=== PATIENT | female | born 1950 | race Caucasian/White ===

== ENCOUNTER 2016-04-29 18:44 | Inpatient (IN) | payer OTHER ==
[~2016-04-29] VITALS: Ht 149.9 cm; Wt 65.1 kg
[~2016-04-29 18:44] MED LIST: Aspirin PO; CLOP75TA14 PO; GLU500 PO; LISI1TAB PO; METO25T PO; SMV40T PO; nitroglycerin SL
[2016-04-29 19:01] VITALS: BP 164/101; PULSE 78; RESP 19; O2SAT 97
[2016-04-29] MEDS ORDERED: 0.9% Sodium Chloride 1,000 ML IV ONE (19:09)
--- NOTE | 2016-04-29 19:09 | ED.REPORT ---
HPI-Chest Pain 40 and Over Date of Service Apr 29, 2016 ED Provider: Dr. Sharad Benavides 65-year-old female with known coronary artery disease status post tenting presents with burning chest pain. She states that she suffered with about 30- 35 minutes of a burning sensation in the upper sternum. She thought was heartburn however was not relieved with [id number] antacids. EMS was called. She was given a couple sprays of nitroglycerin which reduced the pain significantly. On my evaluation she was nearly pain-free. Nursing Notes Stated Complaint: CHEST PAIN Chief Complaint: Chest Pain Nursing Notes Reviewed: Yes Allergies: Coded Allergies: No Known Allergies (Unverified , 10/11/11) Scheduled Aspirin Chew (Aspirin Chew) 81 Mg Chew 81 MG PO DAILY Atorvastatin (Lipitor) 40 Mg Tablet 40 MG PO HS Cetirizine Chew (Cetirizine Chew) 10 Mg Tab.chew 10 MG PO HS Cyanocobalamin (Vitamin B12) 500 Mcg Tablet 1,000 MCG PO DAILY Hydrochlorothiazide (Hydrochlorothiazide) 25 Mg Tablet 25 MG PO DAILY Lisinopril (Lisinopril) 40 Mg Tablet 40 MG PO DAILY Metformin (Metformin) 500 Mg Tablet 500-1,000 MG PO BIDWM Metoprolol Tartrate (Metoprolol Tartrate) 25 Mg Tablet 25 MG PO BID Ranitidine (Zantac) 150 Mg Tablet 150 MG PO DAILY Scheduled PRN Nitroglycerin SL (Nitroglycerin SL) 0.4 Mg Tab.subl 0.4 MG SL Q5MIN PRN PRN For Chest Pain Zolpidem (Zolpidem) 10 Mg Tablet 10 MG PO HS PRN PRN For Insomnia General Time Seen by MD: 19:08 Chief Complaint Chest pain Hx Obtained From: Patient Arrived By: Walk-in Sudden in Onset?: Yes Onset Occurred: 16 - 30 minutes ago Context of Onset: Other (talking on the phone) Symptom Duration: Since onset Location: : Chest left Quality: Burning Radiation: : Does not radiate Severity: Current: Moderate Recent Healthcare: No recent doctor visit, No recent hospitalization Similar Sx Previous: No Past Medical History Past Medical History DM borderline II Reports: Hypertension Past Surgical History breast reduction Smoking History Former Smoker, Never Smoker Social History Alcohol Use: Denies alcohol use Drug Use: Denies drug use Ambulatory Status Independent Review of Systems Respiratory: Denies: Non-productive cough Cardiovascular: Reports: Chest pain GI: Denies: Abdominal pain Musculoskeletal: Denies: Back pain, Extremity pain Skin: Denies Diaphoresis Complete sys rev & neg: except as marked. Physical Exam Initial Vital Signs Vital Signs (First) Date Time Temp Pulse Resp B/P Pulse Ox O2 Delivery O2 Flow Rate FiO2 04/29/16 19:01 36.9 78 19 164/101 97 Room Air Initial VS: Reviewed Head / Eyes: Atraumatic, Normocephalic, PERRL ENT: Mucous membranes moist, Conjunctiva normal, No scleral icterus Neck: Supple, Non-tender, Full range of motion Back: No CVA tenderness Lymphatic: No lymphadenopathy Extremities: Vascular intact, Neuro intact, No swelling, No tenderness Skin: Warm, Dry, No cyanosis Neurologic: Alert, Oriented, Nonfocal Psychiatric: Mood/affect normal, Behavior normal, Normal thought content General/Constitutional: Awake, Alert, No acute distress, Well appearing, Well developed, Well hydrated, Cooperative, Not toxic appearing Respiratory / Chest: Atraumatic, Breath sounds NL, Breath sounds = bilat, No respiratory distress, No rales, No rhonchi, No wheezing, No retractions, No stridor Cardiovascular: Heart rate NL, Regular rhythm, Heart sounds NL, No gallop, No murmurs, No rubs, Peripheral circulation NL, Pulses = bilaterally Abdomen: Atraumatic, Soft, Non-tender, No guarding, No rebound, BS normoactive , No distention Interpretation & Diagnostics Lab Results Interpretation Result Diagram: 04/29/16191904/29/161919 Test 04/29/16 19:20 White Blood Count 10.3th/mm3 (3.8-10.1) Red Blood Count 4.62mil/mm3 (3.90-5.20) Hemoglobin 14.0g/dL (12.0-15.6) Hematocrit 38.6% (35.0-46.0) Mean Corpuscular Volume 83.5fL (81-100) Mean Corpuscular Hemoglobin 30.3pg (27.0-35.0) Mean Corpuscular Hemoglobin Concent 36.3% (32.0-37.0) Red Cell Distribution Width 12.3% (12.3-15.4) Platelet Count 262bil/L (150-400) Neutrophils (%) (Auto) 60.7% (40-74) Lymphocytes (%) (Auto) 29.2% (14-46) Monocytes (%) (Auto) 6.9% (4-12) Eosinophils (%) (Auto) 2.5% (0-5) Basophils (%) (Auto) 0.4% (0-3) Prothrombin Time 9.8sec (8.1-12.5) Prothromb Time International Ratio 0.92ratio Activated Partial Thromboplast Time 28.4sec (22.8-33.0) Sodium Level 136mEq/L (134-144) Potassium Level 2.9mEq/L (3.5-5.2) Chloride Level 95mEq/L (97-108) Carbon Dioxide Level 23mmol/L (18-29) Blood Urea Nitrogen 14mg/dL (8-27) Creatinine 0.58mg/dL (0.57-1.00) Estimat Glomerular Filtration Rate 150mL/min (>59) Glucose Level 167mg/dL (60-99) Calcium Level 9.0mg/dL (8.5-10.1) Magnesium Level 1.4mg/dL (1.6-2.6) Total Bilirubin 0.6mg/dL (0.0-1.2) Aspartate Amino Transf (AST/SGOT) 14U/L (0-50) Alanine Aminotransferase (ALT/SGPT) 13U/L (0-32) Alkaline Phosphatase 72U/L (25-165) Troponin T 0.044ug/L (0.0-0.011) Pro-B-Type Natriuretic Peptide 63.08pg/mL (0-287) Total Protein 6.8g/dL (6.4-8.4) Albumin 4.5g/dL (3.4-5.0) Hold Swain Top Tube Received (Received) ECG Interpretation ECG Interpretation: sinus arrhythmia (rate 72) isoelectric Q waves in V1, V2, V3 no significant ST elevation or depression Time: 19:38 Interpreted by: ED physician X-Ray Chest Interpretation Chest Xray Interpretation: IMPRESSION: No acute pulmonary process. Dictated by: Neelima Linares M.D. on 04/29/2016 at 19:41 Approved by: Neelima Linares M.D. on 04/29/2016 at 19:41 View: Portable Interpretation / Wet Read by: Interpret - Radiologist Re-Eval/Medical Decision Med Decision/Clinical Course Serial EKGs do not demonstrate dynamic ST changes. First troponin is elevated Second EKG is unchanged. Mild leukocytosis. Signs and symptoms consistent with an acute coronary syndrome first non-ST elevation UT. I consulted with Dr. Rashid from cardiology. Ms. Slade is essentially pain free now. She does suffer from reflux symptoms and she is having some burning pain in her lower abdomen that she thinks is more like her reflux. She has been medicated with heparin, Plavix, aspirin and nitrates. Morphine has been ordered for pain. Her blood pressure is currently 129. Her heart rate is 82. She will be admitted to the progressive care unit for further evaluation and treatment. Time of Eval: 20:38 Patient Status: Condition improved, Pain improved Re-Evaluation/Progress Note: Pt rechecked. Pain is almost completely gone. Informed pt of plan of treatment and need for admission. Pt understands and agrees with plan. All questions addressed. Consultation : Referral / Consult Name: SUSTAINABILITY PROJECT MANAGER FLOR NELSON Counseled Regarding: Diagnosis, Lab results, Need for admission Discharge & Departure Primary Impression: Non-ST elevation myocardial infarction (NSTEMI) Disposition: ADMITTED TO HOSPITAL Discharge Condition All VS Reviewed: Yes Condition: Stable Referrals: Darion Campos MD (PCP) [place] Attestation Portion of this note were transcribed by Tricia Dinh. I, Dr. Benavides, personally performed the history, physical exam, and medical decision-making: I reviewed and confirmed the accuracy for the information in the transcribed note. Signed by: hill Blackman, 04/29/16 2200 copies to: Darion Campos MD, Todd P DO Apr 29, 2016 19:09 Tricia Dinh Apr 29, 2016 19:14
[2016-04-29] MEDS ORDERED: Nitroglycerin 2% 1 Gm Ointment TOPICAL ONE (19:10)
[2016-04-29 19:33] LABS: BASOPHILS % (AUTO) 0.4 % (0-3); EOSINOPHILS % (AUTO) 2.5 % (0-5); MONOCYTES % (AUTO) 6.9 % (4-12); Mean Corpuscular Hemoglobin 30.3 pg (27.0-35.0); Mean Corpuscular Volume 83.5 fL (81-100); NEUTROPHILS % (AUTO) 60.7 % (40-74); Platelet Count 262 bil/L (150-400)
--- NOTE | 2016-04-29 19:43 | DRSVH ---
PROCEDURE: X-RAY CHEST ONE VIEW, PORTABLE ([id number]) INDICATIONS: chest pain TECHNIQUE: One view of the chest was acquired. COMPARISON: [facility], , CHEST 2VW, 10/08/2011, 16:40. FINDINGS: Surgical changes and devices: None. Lungs and pleura: No pleural effusions or pneumothorax. Lungs are clear. Mediastinum: Mediastinal contours appear normal. Heart size is normal. Bones and chest wall: No suspicious bony lesions. Overlying soft tissues appear unremarkable. IMPRESSION: No acute pulmonary process. Dictated by: Neelima Linares M.D. on 04/29/2016 at 19:41 Approved by: Neelima Linares M.D. on 04/29/2016 at 19:41
[2016-04-29 19:54] LABS: INR 0.92 ratio
[2016-04-29 20:12] LABS: Magnesium 1.4 mg/dL (1.6-2.6)
[2016-04-29 20:13] LABS: TROPONIN T 0.044 ug/L (0.0-0.011)
[2016-04-29] MEDS ORDERED: Heparin 25K Unit/500mL 0.45 NS 25,000 UNIT in IV Premix 1 EACH IV ONE (20:30)
[2016-04-29] MEDS ORDERED: Heparin 5,000 Unit/mL Inj IVPUSH ONE (20:30)
[2016-04-29] MEDS ORDERED: MeTOProlol 1 mg/mL 5 mL Inj IVPUSH SCH (20:35)
[2016-04-29] MEDS ORDERED: Potassium Chloride 20 mEq/15 mL 15mL Oral Soln PO ONE (20:50)
[2016-04-29] MEDS ORDERED: Senna-Docusate 8.6-50 mg Tablet PO PRN (20:50)
[2016-04-29] MEDS ORDERED: Polyethylene Glycol (PEG) 17 Gm Powder PO PRN (20:50)
[2016-04-29] MEDS ORDERED: Alum-Mag Hydrox-Simeth 30 mL Suspension PO PRN (20:50)
[2016-04-29] MEDS ORDERED: Ondansetron 2 mg/mL 2 mL Inj IVPUSH PRN (20:50)
[2016-04-29 21:03] VITALS: BP 140/92; PULSE 83; RESP 20; O2SAT 98
[2016-04-29] MEDS ORDERED: RANI150T11 PO (21:19)
[2016-04-29] MEDS ORDERED: ZOLP10TA5 PO (21:19)
[2016-04-29] MEDS ORDERED: ATOR80TA PO (21:19)
[2016-04-29] MEDS ORDERED: LISI40TA PO (21:19)
[2016-04-29] MEDS ORDERED: HYDR25TA4 PO (21:19)
[2016-04-29] MEDS ORDERED: CYAN500 PO (21:19)
[2016-04-29] MEDS ORDERED: ASPI81TA3 PO (21:19)
[2016-04-29] MEDS ORDERED: CETI10TA20 PO (21:19)
[2016-04-29] MEDS ORDERED: METF500T4 PO (21:20)
[2016-04-29] MEDS ORDERED: NITR0.4T6 SL (21:21)
[2016-04-29] MEDS ORDERED: LIP40 PO (21:22)
[2016-04-29] MEDS ORDERED: METO25TA6 PO (21:23)
[2016-04-29 22:01] VITALS: BP 145/93; PULSE 97; RESP 20; O2SAT 94
[2016-04-29 22:15] VITALS: PULSE 90
[2016-04-29] MEDS ORDERED: Heparin 5,000 Unit/mL Inj IVPUSH PRN (22:25)
[2016-04-29] MEDS ORDERED: Heparin 25K Unit/500mL 0.45 NS 25,000 UNIT in IV Premix 1 EACH IV SCH (22:25)
[2016-04-29] MEDS ORDERED: Magnesium Chloride SR 64 mg ER24 Tablet PO ONE (22:50)
--- NOTE | 2016-04-29 22:56 | PCM.HPMED ---
Subjective Date of Service Apr 29, 2016 Primary Provider: Admitting Physician: Primary Care Physician: Darion Campos MD Attending Physician: Admit Status: From the Emergency Department Chief Complaint: Chest Pain History of Present Illness: Patient is a 65 year old female w/ a hx of HTN, and DM who presented to [facility] emergency department via EMS w/ right sided chest pain onset 30 minutes prior to calling EMS. Pain began after she hung up the phone with her sister. She had a drug alluding stent in right RCA in 2011 and has had no chest pain since this time. In 2011 she was having increasing shortness of breath which prompted an exercise tolerance test with myocardial perfusion results of this test are listed below. There was abnormality which led to stent placement. She claims that the pain this time is different, "more like heartburn and doesn't go away. " She describes the pain as being in the center of her chest, it is a steady ache without radiation. As this feeling persisted and she started to feel some irregularities in her heart which then prompted her to call EMS. She does have a history of heartburn for which she takes ranitidine nightly and has no persisting symptoms or complications. Antacids did not help to relieve her symptoms tonight. She continues to have pain in her chest however it is much improved with morphine. Medics gave her 2 sprays of nitroglycerin, and aspirin en route, which significantly diminished her pain. Patient takes a baby aspirin every day. She denies pain radiation, shortness of breath, extremity pain, pain with deep breath, vision changes, difficulty swallowing, headache and cough. Review of Systems: A comprehensive review of systems was conducted with the patient and found to be negative except as above in the History of Present Illness. Allergies Coded Allergies: No Known Allergies (Unverified , 10/11/11) PMH 1. Hypertension 2. Hyperlipidemia 3. Borderline type II diabetes mellitus 4. GERD Surgical History 1. Cardiac stent placement in RCA 2011 2. Breast reduction 1988 Family History Significant for LA in father and brother. Father and 2 brothers have all had 4 vessel CABG Mother with lung cancer and had type II diabetes Brother with type II diabetes. Social History Occupation: retired, does photography Hx Alcohol Use: No Hx Substance Use: No Hx Tobacco Use: Yes Smoking Status: Former Smoker (4-5 pack year history), Never Smoker Living Arrangement: Alone Exam Vital Signs Vital Sign - Last Date Time Temp Pulse Resp B/P Pulse Ox O2 Delivery O2 Flow Rate FiO2 04/29/16 19:01 36.9 78 19 164/101 97 Room Air Exam General: Alert, Well-developed. HEENT: Normocephalic, atraumatic. External ears without defect. Pupils equal, round, minimally responsive, not pinpoint or dilated. Oropharynx free of erythema with moist mucosa. Normal dentition. Cardiovascular: Regular rate with normal rhythm with no murmurs, rubs, or gallops appreciated Pulmonary: Clear to auscultation bilaterally with no crackles, wheezes, or rhonchi. Normal respiratory effort with no use of accessory muscles. Abdomen: Bowel tones present. Soft, nontender, nondistended. No hepatosplenomegaly or masses appreciated. Extremities: No clubbing, cyanosis, edema, or lymphadenopathy appreciated. Skin: Normal temperature, turgor, and texture; no rash, ulcers, or subcutaneous nodules appreciated. Neurological: Cranial nerves grossly intact. Normal muscle strength, tone, and bulk. No known gait impairment. Psychiatric: Normal mood and affect. Alert and oriented to person, place, and time. Lab and Diagnostics Result Diagram: 04/29/16191904/29/161919 X-Rays, CTs and MRIs Chest x-ray showed no acute cardiopulmonary process 12-lead ECG Initial ECG: sinus arrhythmia (rate 72) isoelectric Q waves in V1, V2, V3 no significant ST elevation or depression Repeat showed no significant change Additional Diagnostics: FORMER NM MYOCARD PERF SPECT MULT, MIBI ([id number]) Abnormal intermediate risk graded exercise test with myocardial perfusion imaging. Medium moderate reversible inferior perfusion defect consistent with ischemia in PDA distribution. Normal wall motion and left ventricular systolic function. Above average exercise capacity. Exercise mediated chest pain Dictated by: Tila Andino M.D. on 10/04/2011 at 15:41 Assessment & Plan Patient is a 65 year old female w/ a hx of HTN, Hyperlipidemia, and DM presented to [facility] emergency department via EMS w/ right sided chest pain. 1. NSTEMI, acute, present on admission. - Substernal chest pain, no acute EKG changes, troponin 0.044 - Nitro and morphine available as necessary - ASA 325 mg daily - Cardiology consult tomorrow Dr. Benavides discussed case with Dr. Rashid - Keep NPO after midnight - ECHO ordered - Cardiac Heparin drip - Plavix started in ED, not currently ordered - lipid panel, hgba1c pending - ASA, beta shanta given 2. Hypokalemia, present on admission, active - Patient reports chronic diarrhea 3 months ago with Metformin, better with change in dose and formulation. - Potassium 2.9 on arrival - 40 meq given in ED - Further correction to be given following AM chem panel. 3. Hypomagnesia, likely acute, present on admission - 1.4 on arrival - 64 mg magnesium chloride PO today - Recheck Mg in a.m. 4. Diabetes, type II, chronic, present on admission. - HbA1C pending - Hold home metformin - SSI 5. Hypertension, chronic, present on admission - Continue home metroprolol, HCTZ, and Lisinopril - Labetalol for SBP sustained >160 for 30 minutes 6. Hyperlipidemia - Fasting lipid panel ordered - Continue home Atorvastatin 7. GERD - Continue home ranitidine - When necessary Maalox Acetaminophen for mild pain when necessary. Bowel regimen Senna and MiraLAX PRN. Zofran when necessary for nausea. Pain Evaluation: Adequate Pain Control GI Prophylaxis: H2 shanta VTE Prophylaxis: SCDs, Other (heparin drip) Resuscitation Status: CPR: Attempt Resuscitation Attending Statement The patient was seen and examined together with house staff on 04/30/2016 and I agree with the history, exam and plan as outlined in the note above. Meghna Lozano DO Apr 29, 2016 20:55 Yuli Hoffman DO Apr 30, 2016 04:09
[2016-04-30] VITALS (13 sets, daily range): BP systolic 97–136; BP diastolic 56–93; PULSE 73–83; RESP 17–20; O2SAT 93–96
[2016-04-30] MEDS: Sodium Chloride LOK Flush 10 mL Syringe IVFLUSH SCH ×4 (00:30→20:59)
[2016-04-30] MEDS: 0.9% Sodium Chloride 1,000 ML IV SCH ×2 (01:44→19:00)
[2016-04-30 03:39] LABS: TROPONIN T 0.433 ug/L (0.0-0.011)
--- NOTE | 2016-04-30 05:04 | NUR ---
Admit [place] [facility] [place] 2200, pt A&Ox3 and able to transfer self from gurney to bed, denies dizziness and strong gait noted. Pt having mild CP at arrival 03/05 that increased to 06/03. Pt stating nitro did not help much and morphine worked better. Administered 2mg Morphine IVP and effective, no further complaints. Pt started on Heparin gtt in ED and continued. VSS and Tele SR 80's.
--- NOTE | 2016-04-30 09:12 | NUR ---
Social Work-initial assessment/readiness for discharge: Data:EMR Reviewed. Pt is a 65 y/o female who was admitted on 04/29/16 for n stemi per H&P. Pt's insurance is [employer] and PCP is Darion Campos MD. SW met with pt at bedside to discuss discharge planning, SW role explained. Pt is alert and oriented x3. Pt resides at home alone where she remains independent with ADLs. Pt does drive and has no DME. Pt has no HH/ SNF history. SW discussed DPOA/ advanced directive, pt states she has completed this, SW encouraged a copy to be brought in. Per RN notes ,pt has been up independent in her room. Pt states her NOK would be her brother Celso Romero, but she cannot remember his phone number. Pt states she has been trying to get ahold of family, but will likely take a taxi home at discharge. SW provided phone number and plan on white board in room. No anticipated discharge needs. SW will continue to follow if needs arise. Assessment:Pt who is independent at baseline. Plan:Pt to discharge home when medically stable via POV. No anticipated discharge needs. SW will continue to follow if needs arise. YOLANDA Domingo
[2016-04-30 09:14] LABS: BASOPHILS % (AUTO) 0.2 % (0-3); EOSINOPHILS % (AUTO) 1.1 % (0-5); MONOCYTES % (AUTO) 8.2 % (4-12); Mean Corpuscular Volume 84.7 fL (81-100); NEUTROPHILS % (AUTO) 67.7 % (40-74); Platelet Count 222 bil/L (150-400)
[2016-04-30 10:22] LABS: Magnesium 1.5 mg/dL (1.6-2.6)
[2016-04-30 10:23] LABS: TROPONIN T 0.353 ug/L (0.0-0.011)
[2016-04-30] MEDS ORDERED: Magnesium Sulf 2 Gm/50mL Water 2 GM in IV Premix 1 EACH IV ONE (10:50)
--- NOTE | 2016-04-30 14:55 | CONS ---
[address] [address] CONSULTATION REPORT PATIENT: NEEL TYSON : 1950 MR#: [id number] ADMIT: 04/29/2016 JOB ID: [id number] DATE OF SERVICE: 04/30/2016 REQUESTED BY: Dr. Alegre. REASON FOR EVALUATION: Chest discomfort. HISTORY: The patient is a 65-year-old woman with history of diabetes, hypertension, hyperlipidemia, and obesity. She has known coronary artery disease dating back to 2011 when she underwent coronary angiogram, which demonstrated 50% to 60% mid left anterior descending artery stenosis and occluded right coronary artery with normal left ventricular ejection fraction. She had drug-eluting stent placement to the mid right coronary artery at that time. She has not seen any wharf tender helper for the past 3-1/2 years. She follows with her primary care doctor, Dr. Campos She reports that her diabetes and her hyperlipidemia have been under improved control. The patient is physically inactive. She spends most of her day sitting and playing with the computer. She walks her dog for about a mile when the weather is nice. She was in her usual state of health until yesterday around 6 p.m. when she suddenly developed heartburn. It did not radiate. There were no associated symptoms. She rated it about 5/10 to 6/10. The patient concerned that it could be her heart so she came to the hospital. The patient was admitted to [facility] overnight. She was given aspirin, nitroglycerin. Her discomfort has improved significantly but there was still some there overnight. When she woke up this morning the discomfort disappeared. PAST MEDICAL HISTORY: 1. Diabetes mellitus with the last hemoglobin A1c of 6.5, three months ago. 2. Hypertension. 3. Hypercholesterolemia. 4. Obesity. 5. Gastroesophageal reflux disease. PAST SURGICAL HISTORY: 1. Breast reduction surgery in 1988. 2. Drug-eluting stent placement to the mid right coronary artery on October 11, 2011. HOME MEDICATION: 1. Metformin. 2. Atorvastatin 40 mg daily 3. Aspirin 81 mg daily. 4. Metoprolol tartrate 25 mg twice a day. 5. Hydrochlorothiazide 25 mg daily. 6. Lisinopril 40 mg daily. ALLERGIES: No known allergies. SOCIAL HISTORY: She used to smoke 4-5 pack year in the past. She quit smoking a long time ago. She denies alcohol. FAMILY HISTORY: Her father and her brother suffered heart attack. Both of them have four-way bypass surgery. REVIEW OF SYSTEMS: All 10 systems reviewed and noncontributory. PHYSICAL EXAMINATION: Reveals a pleasant, middle-aged lady appears older than her staged age. Temperature is 36.8. Blood pressure is 112/72. Pulse 76. Head and face have normal configuration. Anicteric sclerae. Moist mucosa. Narrow oropharynx. Neck supple. No jugular venous distention. No carotid bruits. Chest normal expansion. Lungs are clear to auscultation. Heart: The first and second heart sound normal. No gallop or murmur. Abdomen: Soft, nontender and without hepatosplenomegaly. Back: No CVA tenderness. Extremities: No clubbing, cyanosis, or edema. Peripheral pulses are equal bilaterally. Neurologic grossly intact. EKG shows sinus rhythm, rate 74 per minute. Low voltage in the limb leads. Poor R-wave progression. No acute ST change. BLOOD TESTS: Show hemoglobin 12.8, WBC 8.3, platelets 222. Sodium 139, potassium 3.8, chloride 100, bicarb 19. BUN 10, creatinine 0.65. Glucose 167, hemoglobin A1c 7.1. Troponin T 0.433 and 0.353. Cholesterol 154, triglycerides 222, HDL 45, LDL 63. IMPRESSION: 1. Lbh-UL-ornwfsbs myocardial infarction. 2. Status post drug-eluting stent placement to the right coronary artery in 2011. 3. Borderline controlled diabetes. 4. Hyperlipidemia, under control. 5. Hypertension. 6. Overweight with a BMI of 28.8 kg/m2. PLAN: The patient is on appropriate medical treatment with aspirin, beta shanta, heparin, statin. I will arrange for her to undergo coronary angiogram and possible percutaneous intervention. The risks and benefits of the procedure have been explained to the patient. She understands and agrees to proceed with the procedure. JAI
--- NOTE | 2016-04-30 14:56 | NUR ---
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 Stopped heparin drip per request of laborer ammunition assembly. pt denied any cp before leaving and had no s/s of distress.
[2016-04-30] MEDS ORDERED: Nitroglycerin 50,000 mcg/250 mL D5W Premix IV ONE (15:02)
[2016-04-30] MEDS ORDERED: Heparin 5,000 Units/500 mL NS Premix IV ONE (15:03)
[2016-04-30] MEDS ORDERED: Heparin 1,000 Unit/mL 10 mL Inj ONE ×2 (15:03→15:33)
[2016-04-30] MEDS ORDERED: fentaNYL-PF 50 mCg/mL 2 mL Inj ONE (15:21)
[2016-04-30] MEDS ORDERED: 0.9% Sodium Chloride 500 ML ONE (15:32)
--- NOTE | 2016-04-30 15:43 | PCM.PNMED ---
Subjective Date of Service Apr 30, 2016 Subjective denies any new issues/complaints. no CP at this time Exam Vital Signs Vital Sign - Last Date Time Temp Pulse Resp B/P Pulse Ox O2 Delivery O2 Flow Rate FiO2 04/30/16 14:22 37.2 80 18 136/93 96 Room Air Intake and Output 04/29/16 04/29/16 04/30/16 Cumulative From/Thru 15:00 23:00 07:00 04/29/16 19:01 - 04/30/16 06:06 Intake Total 440 ml 440 ml Balance 440 ml 440 ml IV Total 440 ml 440 ml General: Alert, Cooperative, No Acute Distress Eyes: Scleral Anicteric Nose: Mucous Membr Moist/[place] Mouth: Mucous Membr Moist/[place] Neck: Supple Chest & Lungs: Chest Wall Normal, Clear to auscultation & percussion Cardiovascular: Regular Rate/Rhythm Abdomen: Non-tender, Non-distended, Normoactive bowel tones, Soft Extremities: No cyanosis/clubbing/edma bilat Neurological: Grossly Neurologically Intact, Normal Speech Additional Information: Psychiatric: Normal mood and affect. IVs and Medications Medications Reviewed: Medications were reviewed in detail Lab and Diagnostics Result Diagram: 04/30/16 0900 04/30/16 0900 X-Rays, CTs and MRIs Chest x-ray showed no acute cardiopulmonary process 12-lead ECG Initial ECG: sinus arrhythmia (rate 72) isoelectric Q waves in V1, V2, V3 no significant ST elevation or depression Repeat showed no significant change Additional Diagnostics FORMER NM MYOCARD PERF SPECT MULT, MIBI ([id number]) Abnormal intermediate risk graded exercise test with myocardial perfusion imaging. Medium moderate reversible inferior perfusion defect consistent with ischemia in PDA distribution. Normal wall motion and left ventricular systolic function. Above average exercise capacity. Exercise mediated chest pain Dictated by: Tila Andino M.D. on 10/04/2011 at 15:41 Assessment & Plan 65 year old female w/ a hx of HTN, Hyperlipidemia, and DM presented to [facility] emergency department via EMS w/ right sided chest pain. 1. NSTEMI, acute, present on admission. - appreciate cardiology consult. will f/u w/ recs - tentative plan for cardiac cath - c/w current meds and further adjustment of cardiac meds per cardiology consult - f/u pending echo - Cardiac Heparin drip 2. Hypokalemia, present on admission, improved. - Further correction to be given following AM chem panel. 3. Hypomagnesia, likely acute, present on admission - replete and followup 4. Diabetes, type II, chronic, present on admission. - HbA1C 7.1 - Hold home metformin - SSI 5. Hypertension, chronic, present on admission - Continue home metroprolol, HCTZ, and Lisinopril - Labetalol for SBP sustained >160 for 30 minutes 6. Hyperlipidemia - Continue home Atorvastatin 7. GERD - Continue home ranitidine - When necessary Maalox Dispo: 2-3 days GI Prophylaxis: H2 shanta VTE Prophylaxis: SCDs, Other (heparin drip) Resuscitation Status: CPR: Attempt Resuscitation Time spent 30 min Eric Alegre Apr 30, 2016 15:43
[2016-04-30] MEDS ORDERED: Adenosine Inj 20 ML IV ONE (15:54)
[2016-04-30] MEDS ORDERED: 0.9% Sodium Chloride 50 ML ONE (15:54)
--- NOTE | 2016-04-30 16:49 | NUR ---
Arrived to [facility] bed 9 following a heart cath by Dr Spain. No stent - possible "broken heart syndrome". No pain upon arrival to [facility]. Right arterial access site intact closure device - star closure.
--- NOTE | 2016-04-30 16:52 | CS94 ---
[place] [address] DIAGNOSTIC CARDIAC CATHETERIZATION PATIENT: NEEL TYSON : 1950 MR#: [id number] ADMIT: 04/29/2016 JOB ID: [id number] SERVICE DATE: 04/30/2016 PATIENT PROFILE: The patient is a 65-year-old lady with history of diabetes, hypertension, hypercholesterolemia, and obesity. She presented with non ST elevated myocardial infarction. PROCEDURE: 1. Retrograde left heart catheterization. 2. Selective coronary angiography. 3. Fractional flow reserve to the left anterior descending. 4. Left ventricular angiogram. 5. Vascular closure device Perclose. COMPLICATION: None. METHOD: Retrograde left heart catheterization was performed from the right groin under 1% lidocaine local anesthesia using a 6-Guinean sheath. Selective coronary angiogram was performed in multiple projections, including cranial and caudal angulations with hand injected contrast via JL4 and 3DRC catheters. Heparin 3,000 units were given. A flow wire was directed into the left anterior descending artery. Adenosine was given infusion IV. FFR of the left anterior descending artery was measured. A 5-Guinean angulated pigtail catheter was advanced to the left ventricle and left ventricular angiogram was performed in the 30 degree GIORDANO view by injecting contrast at the rate of 10 cc/second for 3 seconds. This catheter was withdrawn. Right femoral angiogram was performed. Following sheath removal, hemostasis was achieved by using a StarClose device. The patient tolerated the procedure well. She was transferred to [facility] in good condition. TOTAL CONTRAST USED: 70 cc. FLUOROSCOPY TIME: Three minutes. RESULTS: 1. Selective coronary angiogram: a. Left main coronary artery has minor 20% stenosis in the distal portion with minor calcification. b. The left anterior descending artery is transapical and has diffuse mild calcification in the proximal and mid portions with 50% stenosis in the proximal portion and 60% stenosis in the mid portion with poststenotic dilatation. The 1st, 2nd and 3rd diagonal branches are small and have minor disease. c. The circumflex artery has minor calcification with 20% to 30% stenosis in the proximal and mid portions. d. The dominant right coronary artery has 30% stenosis in the proximal portion and 30% in-stent restenosis in the mid portion. 2. FFR of the mid left anterior descending artery is 0.86, which indicates nonhemodynamic significant stenosis. 3. Left ventricular angiogram demonstrates moderately depressed left ventricular systolic function (visually estimated ejection fraction 35%). The apical half of the anterolateral wall, apex, and apical half of the inferior wall are akinetic. The basal segments are hyperdynamic. 4. There is no gradient across the aortic valve on catheter withdrawal. 5. Aortic pressure is 105/65 mmHg. Left ventricular pressure is 104/11 mmHg. 6. Left ventricular end-diastolic pressure is 26 mmHg. CONCLUSION: 1. Moderate disease of the left anterior descending artery. 2. Mild stenosis of the mid right coronary artery. 3. Stress cardiomyopathy (LVEF 35%). 4. LVEDP is 26 mmHg. MTDD
--- NOTE | 2016-04-30 17:19 | DRSVH ---
[facility] [address] [place] [address] Echocardiogram Report Name: NEEL TYSON MStudy Date: 08/2016 Height: 59 in Hospital Exam Location: [facility] Weight: 142 lb Gender: Female BSA: 1.6 m2 : 1950 Age: 65 yrs BP: 112/72 mmHg Reason For Study: NSTEMI Ordering Physician: Performed By: Roopa Finch Referring Physician: CHAY PETERS Interpretation Summary The left ventricle is normal in size. Left ventricular systolic function is moderate to severely reduced. The ejection fraction is estimated to be 30- 35%. There is hyperdynamic contractility along the proximal 1/3 of the LV segments. The distal 1/3 LV segments show akinesis. Findings are suggestive of stress induced cardiomyopathy but cannot exclude acute coronary syndrome. Clinical correlation is recommended. The right ventricle is normal size. Overall normal function of the RV with akinesis of the RV apex. The right ventricular systolic pressure is estimated at 32 mmHg assuming a right atrial pressure of 3 mm Hg. Borderline left atrial enlargement. Right atrial size is normal. There is no significant valvular heart disease. The ascending aorta is mildly enlarged. Procedure: A two-dimensional transthoracic echocardiogram with color flow and Doppler was performed. The study quality was technically adequate. There is no prior echocardiogram noted for this patient. The patient was in normal sinus rhythm during the exam. Left Ventricle: The left ventricle is normal in size. There is normal left ventricular wall thickness. Left ventricular systolic function is moderate to severely reduced. The ejection fraction is estimated to be 30-35%. There is hyperdynamic contractility along the proximal 1/3 of the LV segments. The distal 1/3 LV segments show akinesis. Findings are suggestive of stress induced cardiomyopathy but cannot exclude acute coronary syndrome. Clinical correlation is recommended. Diastolic function could not be accurately assessed due to contradictory data. Right Ventricle: The right ventricle is normal size. Overall normal function of the RV with akinesis of the RV apex. Atria: Borderline left atrial enlargement. Right atrial size is normal. The interatrial septum is intact with no evidence for an atrial septal defect. There is no Doppler evidence for an interatrial shunt. Mitral Valve: The mitral valve leaflets appear thickened, but open well. There is trace mitral regurgitation. Aortic Valve: The aortic valve is trileaflet. The aortic valve opens well. There is discrete nodular thickening of the left coronary cusp. There is trace aortic regurgitation. Tricuspid Valve: The tricuspid valve is normal in structure and function. There is mild tricuspid regurgitation. The right ventricular systolic pressure is estimated at 32 mmHg assuming a right atrial pressure of 3 mm Hg. Pulmonic Valve: The pulmonic valve is not well seen, but is grossly normal. There is a trace or physiologic amount of pulmonic regurgitation. There is no significant valvular heart disease. Great Vessels: The aortic root is normal size. The ascending aorta is mildly enlarged. The aortic arch is normal in size. The pulmonary artery is normal size. The IVC is of normal diameter and collapses greater than 50% with a sniff. This suggests a low right atrial pressure of 3 mm Hg. Pericardium/ Pleura There is no pericardial effusion. There is no pleural effusion. MMode/2D Measurements & Calculations LVIDd: 4.8 cm LA dimension: 3.6 cm RA long axis LVOT diam: 1.9 cm LVIDs: 2.5 cm AoV Opening FS: 48.4 % LA A2 area: 18.4 cm RA area EPSS: 0.49 cm LA A4 area: 16.0 cm Ao root diam IVSd: 0.92 cm LA length (vol) : 11.0 cm LVPWd: 0.74 cm RA vol asc Aorta Diam LA vol: 54.0 ml : 24.5 ml LA vol index RA Ao Arch Diam (Prox : 15.3 mm2 Trans): 2.8 cm IVC diam: 1.5 cm LV burgess. diameter/BSA LV sys. diameter/BSA RVD1 (basal) (cm/m^2): 3.0 (cm/m^2): 1.5 Doppler Measurements & Calculations Ao V2 max MV E max juan MV E/A: 1.8 TR max juan : 153.7 cm/sec : 95.4 cm/sec Med Peak E' Juan : 268.3 cm/sec Ao max PG MV A max juan TR max PG : 9.5 mmHg : 52.5 cm/sec E/E' med: 18.1 : 28.8 mmHg Ao mean PG MV P1/2t: 49.7 msec Lat Peak E' Juan PA V2 max : 73.8 cm/sec LVOT Max Juan E/E' lat: 16.8 PA mean PG : 82.9 cm/sec E/e' average: 17.5 Pulm A Revs Dur PA Accel Time BARNEY(I,D): 1.7 cm : 0.15 sec sev ratio MV A dur: 0.12 sec MV dec time MV P1/2t max juan Ao V2 mean LV V1 max PG : 0.17 sec : 110.8 cm/sec MVA(P1/2t): 4.4 cm2 Ao V2 VTI: 33.0 cm LV V1 VTI BARNEY(V,D): 1.6 cm2 : 18.8 cm PA V2 mean BARNEY indexed to BSA Pulm A Revs Dur - MV A : 57.0 cm/sec (cm^2/m^2): 1.0 Dur: -0.02 msec Reading Physician:PM
--- NOTE | 2016-04-30 18:46 | NUR ---
Pt transferred to [facility] room 2022. Pt's VSS, Rt groin puncture site CDI with no bleeding/hematoma noted at time of transfer. Report and pt handoff given to Filemon BOYCE.
--- NOTE | 2016-04-30 18:47 | NUR ---
back to unit patient arrived back to unit. right groining dressing has minimal sanguinous draining that labor mediator RN said was normal. right leg and right hand cap refill normal. patient will remain in bed for 45 more minutes. denies any pain
[2016-05-01] MEDS: 0.9% Sodium Chloride 1,000 ML IV SCH (00:17)
[2016-05-01 01:28] VITALS: BP 103/66; PULSE 73; RESP 18; O2SAT 96
[2016-05-01] MEDS ORDERED: Ondansetron 2 mg/mL 2 mL Inj IVPUSH PRN (01:55)
[2016-05-01] MEDS ORDERED: 0.9% Sodium Chloride 1,000 ML IV PRN (01:55)
--- NOTE | 2016-05-01 04:12 | NUR ---
cardiac Right groin drainage has passed the sriram placed in the beginning of shift after 2 ambulations, but just slightly soaking the dressing. No hematoma noted. denies chest pain or any discomfort. Tele SR in the 70s. slept most of the night. SBA to the bathroom.
[2016-05-01 05:46] VITALS: BP 148/55; PULSE 76; RESP 18; O2SAT 97
[2016-05-01 07:16] LABS: Mean Corpuscular Hemoglobin 29.7 pg (27.0-35.0); Mean Corpuscular Volume 88.3 fL (81-100)
[2016-05-01] MEDS: Sodium Chloride LOK Flush 10 mL Syringe IVFLUSH SCH (08:55)
[2016-05-01 09:38] VITALS: BP 114/75; PULSE 75; RESP 18; O2SAT 97
--- NOTE | 2016-05-01 10:53 | PROG NOTE ---
[address] [address] PROGRESS NOTE PATIENT: NEEL TYSON : 1950 MR#: [id number] ADMIT: 04/29/2016 JOB ID: [id number] DATE: 05/01/2016 SUBJECTIVE: The patient is a 65-year-old lady who presented with non ST elevated myocardial infarction. She underwent coronary angiogram yesterday, which demonstrates moderate disease of the left anterior descending artery and patent right coronary artery stent. Her left ventricular angiogram and echocardiogram are compatible with stress cardiomyopathy. The patient reports no stress event. She has a trip planned coming on May 28. She denies chest discomfort, shortness of breath, orthopnea or PND. OBJECTIVE: Temperature is 36.7. Blood pressure is 114/78, pulse 78. Body weight is 65.1 kg. Head and face have normal configuration. Anicteric sclerae. Moist mucosa. Neck supple. No jugular venous distention or carotid bruits. Chest normal expansion. Lungs are clear to auscultation. Heart: The first and second heart sound normal. No gallop or murmur. Abdomen: Soft and nontender. Right groin puncture site excellent. Extremities: No clubbing, cyanosis or edema. BLOOD TESTS: Show hemoglobin 12.7, WBC 8.2, platelets 208. Sodium 139, potassium 4.4, chloride 99, bicarbonate 21, BUN 9, creatinine 0.76, glucose 243. Hemoglobin A1c 7.1. Cholesterol 154, triglycerides 222, HDL 46, LDL 63. Echocardiogram showed normal left ventricular size with ejection fraction 30%-35%. Apical third of the left ventricle is akinetic. Borderline left atrial enlargement. No valvular abnormality. Mildly enlarged ascending aorta. IMPRESSION: 1. Stress cardiomyopathy. 2. Status post drug-eluting stent to the mid right coronary artery in 2011. 3. Overweight with BMI of 28.8 kg/m2. 4. Diabetes mellitus. 5. Hyperlipidemia, under control. 6. Hypertension under control. PLAN: The patient could be discharged from the hospital today. With stress cardiomyopathy, her antihypertensive medications need to be decreased. Hydrochlorothiazide will be discontinued. I would decrease the dose of metoprolol from 25 mg b.i.d. to 12.5 mg b.i.d. and lisinopril from 40 mg once daily to 20 mg once daily. She will continue on aspirin and atorvastatin. I expect her left ventricle to recover. She will followup with Dr. Andino in three months with an echocardiogram. Her antihypertensive medications will likely need to be titrated up as an outpatient. JAI
--- NOTE | 2016-05-01 11:40 | NUR ---
Social Work-readiness for discharge: Data:EMR Reviewed. Pt is on day 2 of hospitalization for n-stemi per H&P. Pt may be ready to discharge later today or tomorrow. Cardiology to see pt. Pt has questions about transportation assistance. Pt did arrive via ambulance. SW called Medicaid transport and was informed that pt does have transport benefit. SW will just need to fax in transport request when pt is ready to go. SW updated pt at bedside, she is agreeable. Per RN notes, pt has been up independent in her room. No anticipated discharge needs. SW will continue to follow. Assessment:pt who is independent at baseline. Plan:Pt to discharge home when medically stable via Medicaid transport. SW to arrange Medicaid transport at discharge. No anticipated discharge needs. SW will continue to follow. YOLANDA Domingo
[2016-05-01] MEDS ORDERED: LISI-567 PO (12:21)
[2016-05-01] MEDS ORDERED: METO25TA6 PO (12:21)
--- NOTE | 2016-05-01 12:27 | PCM.DIMED ---
Jennie Reina DO 05/01/16 1227: Discharge Instructions Date of Service May 01, 2016 Dates of Hospitalization Apr 29, 2016 at 21:00 Discharge Diagnosis Discharge Diagnosis 1. NSTEMI 2. Hypokalemia 3. Hypomagnesia 4. Diabetes, type II 5. Hypertension 6. Hyperlipidemia 7. GERD Diet Heart Healthy Activity Limited until seen by PCP Call your provider Fever or Chills, Shortness of breath, Bleeding, Chest pain, Weakness (unilateral ) Patient Instructions Stop taking hydrochlorothiazide. Decrease the dose of metoprolol from 25 mg twice per day to 12.5 mg twice per day and lisinopril from 40 mg once daily to 20 mg once daily. Continue on aspirin and atorvastatin. Follow up with Dr. Andino in three months with an echocardiogram. Follow up with your primary care provider in 1 week to review your blood pressure medications. Follow-up Provider: Darion Campos MD Follow-up with PCP in: 1 week Provider: Tila Andino MD Follow-up in: Other (3 months) Victor Manuel Beavers DO 05/01/16 1417: Discharge Instructions Attending's Statement Read and agree Jennie Reina DO May 01, 2016 12:27 Victor Manuel Beavers DO May 01, 2016 14:17
--- NOTE | 2016-05-01 12:56 | NUR ---
Faxed [facility] transport form to [facility] for FRONT COUNTER CLERK. [facility] confirmed 1430 pickling solution maker in main lobby per request.
--- NOTE | 2016-05-01 13:44 | NUR ---
Social Work-discharge: Data:EMR Reviewed. Pt is on day 2 of hospitalization for n-stemi per H&P. Pt is ready to discharge today. Per RN notes, pt has been up independent in her room.UR specialist arranged medicaid taxi for 1430 in the main lobby. Pt and RN updated and agreeable to plan. No other discharge needs. All updated and agreeable to plan. Assessment:pt who is independent at baseline. Plan:Pt to discharge home today via Medicaid transport at 1430. No discharge needs identified. All updated and agreeable to plan. YOLANDA Domingo
--- NOTE | 2016-05-01 14:30 | NUR ---
Discharge Pt discharged to home via cabulance. Pt given all instructions, one Rx for prednisone. F/U understood. All questions answered.
--- NOTE | 2016-05-01 20:41 | PCM.DC.MED ---
Discharge Summary Date of Service May 01, 2016 Dates of Hospitalization Date of Hospital Admission Apr 29, 2016 at 21:00 Date of Discharge: May 01, 2016 Providers: Admitting Physician: Yuli Hoffman DO Primary Care Physician: Darion Campos MD Attending Physician: Yuli Hoffman DO Diagnosis at Time of Discharge Diagnosis at Time of Discharge 1. Stress cardiomyopathy 2. Hypokalemia 3. Hypomagnesia 4. Diabetes, type II 5. Hypertension 6. Hyperlipidemia 7. GERD Procedures XRay, CTs & MRIs Chest x-ray showed no acute cardiopulmonary process ECG 12 Lead Initial ECG: sinus arrhythmia (rate 72) isoelectric Q waves in V1, V2, V3 no significant ST elevation or depression Repeat showed no significant change Cardiac Echo Impression Echocardiogram Report Interpretation Summary The left ventricle is normal in size. Left ventricular systolic function is moderate to severely reduced. The ejection fraction is estimated to be 30- 35%. There is hyperdynamic contractility along the proximal 1/3 of the LV segments. The distal 1/3 LV segments show akinesis. Findings are suggestive of stress induced cardiomyopathy but cannot exclude acute coronary syndrome. Clinical correlation is recommended. The right ventricle is normal size. Overall normal function of the RV with akinesis of the RV apex. The right ventricular systolic pressure is estimated at 32 mmHg assuming a right atrial pressure of 3 mm Hg. Borderline left atrial enlargement. Right atrial size is normal. There is no significant valvular heart disease. The ascending aorta is mildly enlarged. Reading Physician:PM Other Diagnostics FORMER NM MYOCARD PERF SPECT MULT, MIBI \\ Abnormal intermediate risk graded exercise test with myocardial perfusion imaging. Medium moderate reversible inferior perfusion defect consistent with ischemia in PDA distribution. Normal wall motion and left ventricular systolic function. Above average exercise capacity. Exercise mediated chest pain Dictated by: Tila Andino M.D. on 10/04/2011 at 15:41 Brief History From the history and physical performed by Dr. Meghna Lozano on 04/29/2016: Patient is a 65 year old female w/ a hx of HTN, and DM who presented to [facility] emergency department via EMS w/ right sided chest pain onset 30 minutes prior to calling EMS. Pain began after she hung up the phone with her sister. She had a drug alluding stent in right RCA in 2011 and has had no chest pain since this time. In 2012 she was having increasing shortness of breath which prompted an exercise tolerance test with myocardial perfusion results of this test are listed below. There was abnormality which led to stent placement. She claims that the pain this time is different, "more like heartburn and doesn't go away. " She describes the pain as being in the center of her chest, it is a steady ache without radiation. As this feeling persisted and she started to feel some irregularities in her heart which then prompted her to call EMS. She does have a history of heartburn for which she takes ranitidine nightly and has no persisting symptoms or complications. Antacids did not help to relieve her symptoms tonight. She continues to have pain in her chest however it is much improved with morphine. Medics gave her 2 sprays of nitroglycerin, and aspirin en route, which significantly diminished her pain. Patient takes a baby aspirin every day. She denies pain radiation, shortness of breath, extremity pain, pain with deep breath, vision changes, difficulty swallowing, headache and cough. Hospital Course 65 year old female w/ a hx of HTN, Hyperlipidemia, and DM presented to [facility] emergency department via EMS w/ right sided chest pain. 1. Stress cardiomyopathy, acute, present on admission. - Cardiology consulted - Cardiac catheterization with coronary angiogram showed demonstrates moderate disease of the left anterior descending artery and patent right coronary artery stent. Her left ventricular angiogram showed stress cardiomyopathy, which was supported by echocardiogram as above. - She will followup with Dr. Andino in three months with an echocardiogram. 2. Hypokalemia, present on admission, improved. - Replenished 3. Hypomagnesia, likely acute, present on admission, improved. - Replenished 4. Diabetes, type II, chronic, present on admission. - HbA1C 7.1 5. Hypertension, chronic, present on admission - Stopped hydrochlorothiazide - Decreased metoprolol to 12.5 mg twice per day and lisinopril to 20 mg once daily - Recommend continued follow up with primary care provider and to increase lisinopril and/or metoprolol and/or to resume hydrochlorothiazide as patient's blood pressure allows and as her heart recovers from the stress cardiomyopathy 6. Hyperlipidemia - Continued home Atorvastatin 7. GERD - Continued home ranitidine Exam Vital Signs (Last) Date Time Temp Pulse Resp B/P Pulse Ox O2 Delivery O2 Flow Rate FiO2 05/01/16 09:38 36.7 75 18 114/75 97 Room Air Exam General: Awake, Alert, Cooperative, No Acute Distress Eyes: Scleral Anicteric Nose: Mucous Membr Moist/[place] Mouth: Mucous Membr Moist/[place] Neck: Supple Chest & Lungs: Chest Wall Normal, Clear to auscultation & percussion Cardiovascular: Regular Rate/Rhythm Abdomen: Non-tender, Non-distended, Normoactive bowel tones, Soft Extremities: No cyanosis/clubbing/edma bilat Neurological: Grossly Neurologically Intact, Normal Speech Psychiatric: Normal mood and affect. Behavior appropriate for age. Test 04/29/16 19:20 04/29/16 22:00 04/30/16 09:00 05/01/16 06:32 Prothrombin Time 9.8sec (8.1-12.5) Prothromb Time International Ratio 0.92ratio Hemoglobin A1c 7.1% (4.8-5.6) Total Bilirubin 0.6mg/dL (0.0-1.2) Aspartate Amino Transf (AST/SGOT) 14U/L (0-50) Alanine Aminotransferase (ALT/SGPT) 13U/L (0-32) Alkaline Phosphatase 72U/L (25-165) Pro-B-Type Natriuretic Peptide 63.08pg/mL (0-287) Total Protein 6.8g/dL (6.4-8.4) Albumin 4.5g/dL (3.4-5.0) Hold Swain Top Tube Received (Received) Hold Urine Received (Received) Neutrophils (%) (Auto) 67.7% (40-74) Lymphocytes (%) (Auto) 22.7% (14-46) Monocytes (%) (Auto) 8.2% (4-12) Eosinophils (%) (Auto) 1.1% (0-5) Basophils (%) (Auto) 0.2% (0-3) Activated Partial Thromboplast Time 63.2sec (22.8-33.0) Magnesium Level 1.5mg/dL (1.6-2.6) Troponin T 0.353ug/L (0.0-0.011) Triglycerides Level 222mg/dL (0-149) Cholesterol Level 154mg/dL (100-199) LDL Cholesterol, Calculated 63.600mg/dL (0-99) VLDL Cholesterol 44.400mg/dL HDL Cholesterol 46mg/dL (>39) Cholesterol/HDL Ratio 3.35 (0.0-4.4) White Blood Count 8.2th/mm3 (3.8-10.1) Red Blood Count 4.27mil/mm3 (3.90-5.20) Hemoglobin 12.7g/dL (12.0-15.6) Hematocrit 37.7% (35.0-46.0) Mean Corpuscular Volume 88.3fL (81-100) Mean Corpuscular Hemoglobin 29.7pg (27.0-35.0) Mean Corpuscular Hemoglobin Concent 33.7% (32.0-37.0) Red Cell Distribution Width 13.0% (12.3-15.4) Platelet Count 208bil/L (150-400) Sodium Level 139mEq/L (134-144) Potassium Level 4.4mEq/L (3.5-5.2) Chloride Level 99mEq/L (97-108) Carbon Dioxide Level 21mmol/L (18-29) Blood Urea Nitrogen 9mg/dL (8-27) Creatinine 0.76mg/dL (0.57-1.00) Estimat Glomerular Filtration Rate 110mL/min (>59) Glucose Level 243mg/dL (60-99) Calcium Level 8.5mg/dL (8.5-10.1) Discharge Medications Discharge Medications Aspirin Chew (Aspirin Chew) 81 Mg Chew 81 MG PO DAILY (Reported) Atorvastatin (Lipitor) 40 Mg Tablet 40 MG PO HS (Reported) Cetirizine Chew (Cetirizine Chew) 10 Mg Tab.chew 10 MG PO HS (Reported) Cyanocobalamin (Vitamin B12) 500 Mcg Tablet 1,000 MCG PO DAILY (Reported) Lisinopril (Lisinopril) 20 Mg Tablet 20 MG PO DAILY Prescribed by: STONEY SCHAEFER DO Metformin (Metformin) 500 Mg Tablet 500-1,000 MG PO BIDWM (Reported) Metoprolol Tartrate (Metoprolol Tartrate) 25 Mg Tablet 12.5 MG PO BID Prescribed by: STONEY SCHAEFER DO Ranitidine (Zantac) 150 Mg Tablet 150 MG PO DAILY (Reported) As needed Nitroglycerin SL (Nitroglycerin SL) 0.4 Mg Tab.subl 0.4 MG SL Q5MIN PRN PRN For Chest Pain (Reported) Zolpidem (Zolpidem) 10 Mg Tablet 10 MG PO HS PRN PRN For Insomnia (Reported) Followup Plan Discharge Diet: Heart Healthy Discharge Activity: Limited until seen by PCP Patient Instructions Stop taking hydrochlorothiazide. Decrease the dose of metoprolol from 25 mg twice per day to 12.5 mg twice per day and lisinopril from 40 mg once daily to 20 mg once daily. Continue on aspirin and atorvastatin. Follow up with Dr. Andino in three months with an echocardiogram. Follow up with your primary care provider in 1 week to review your blood pressure medications. Follow-up Provider: Darion Campos MD Follow-up with PCP in: 1 week Provider: Tila Andino MD Follow-up in: Other (3 months) Time spent 40 minutes Attending Statement I have seen and evaluated patient at bedside in addition to directly supervising care provided by resident physician. I agree with above documentation. copies to: Darion Campos MD; Tial Andino MD, Marissa L DO May 01, 2016 20:41 Victor Manuel Beavers DO May 02, 2016 08:25
== END 2016-05-01 14:19 | disposition home or self-care (01) | DRG 190 ==
LOC: EDBD 18:44 → SED 18:44 → MPC 21:00
PROVIDERS: ADMIT Internal Medicine; ATTEND Internal Medicine
PROC: 4A023N7 Measurement of Cardiac Sampling and Pressure, Left Heart, Percutaneous Approach (ICD-10-PCS; principal; 2016-04-30)
PROC: B2111ZZ Fluoroscopy of Multiple Coronary Arteries using Low Osmolar Contrast (ICD-10-PCS; 2016-04-30)
DX: I21.4 Non-ST elevation (NSTEMI) myocardial infarction (principal); I51.81 Takotsubo syndrome; E11.9 Type 2 diabetes mellitus without complications; E83.42 Hypomagnesemia; I10 Essential (primary) hypertension; E78.5 Hyperlipidemia, unspecified; K21.9 Gastro-esophageal reflux disease without esophagitis; I25.10 Atherosclerotic heart disease of native coronary artery without angina pectoris; E87.6 Hypokalemia; E66.9 Obesity, unspecified; Z68.28 Body mass index [BMI] 28.0-28.9, adult